=== PATIENT | male | born 1995 | race Caucasian/White ===

== ENCOUNTER 2018-01-22 18:26 | Emergency (ER) | payer OTHER ==
[~2018-01-22] VITALS: Ht 188 cm; Wt 127.0 kg
[2018-01-22 18:30] VITALS: BP 114/79; Ht 188 cm; Wt 127.0 kg
== END 2018-01-22 18:58 | disposition other institution (70) ==
LOC: ED 18:26
DX: S80.01XA Contusion of right knee, initial encounter (principal); V49.9XXA Car occupant (driver) (passenger) injured in unspecified traffic accident, initial encounter; Y93.89 Activity, other specified; Y92.89 Other specified places as the place of occurrence of the external cause; Y99.8 Other external cause status